=== PATIENT | female | born 1940 | race Caucasian/White ===

== ENCOUNTER 2017-03-17 13:56 | Inpatient (IN) ==
--- NOTE | 2017-03-17 14:45 | EKG Report ---
Test Performed on : 03/17/2017 1:56:37 PM Test Reason : AMS Blood Pressure : / mmHG Vent. Rate : 076 BPM Atrial Rate : 076 BPM P-R Int : 190 ms QRS Dur : 082 ms QT Int : 408 ms P-R-T Axes : 000 004 058 degrees QTc Int : 459 ms Normal sinus rhythm. Normal ECG No previous ECGs available Unconfirmed Result
[2017-03-17 15:03] LABS: INR 0.99; PROTIME 10.4 Seconds (9.2-11.7); PTT 25.6 Seconds (22.0-36.0)
[2017-03-17 15:05] LABS: BASO% 0.2 % (0.0-0.8); EOS# 0.12 X1000 (0.0-0.7); HEMATOCRIT 30.9 % (37.0-47.0); LYMPH# 1.35 X1000 (1.2-3.4); LYMPH% 10.7 % (20.5-51.1); MCH 36.1 PG (27-31); MCHC 32.4 g/dL (33-37); MCV 111.6 FL (81-99); MONO% 15.9 % (1.7-9.3); MPV 10.2 FL (7.4-10.4); NEUT% 72.2 % (42.2-75.2); PLT 554 X1000 (130-400); RBC 2.77 XMIL (4.2-5.4)
[2017-03-17 15:07] LABS: ALBUMIN 3.7 g/dL (3.5-5.0); CALCIUM 8.4 mg/dL (8.8-10.2); POTASSIUM 4.3 mmol/L (3.5-5.1); TOTAL BILIRUBIN 0.25 mg/dL (0.20-1.00); TOTAL PROTEIN 6.3 g/dL (6.3-8.3)
--- NOTE | 2017-03-17 15:20 | Diag Imaging Result Doc PS360 ---
CHEST-PORTABLE - 03/17/2017 INDICATION: AMS TECHNIQUE: COMPARISON: 08/03/2013 FINDINGS: Stable small granuloma in the right lung base. No focal infiltrates, pneumothorax, or pleural effusion. Heart size is top normal. IMPRESSION: No acute disease or change from prior. Electronically signed by Diony Boogie 03/17/2017 3:18 PM
[2017-03-17 15:28] LABS: MANUAL DIFF NEEDED? NO
--- NOTE | 2017-03-17 16:04 | Diag Imaging Result Doc PS360 ---
HEAD W/O CONTRAST - 03/17/2017 INDICATION: AMS TECHNIQUE: A CT dose reduction protocol was used. COMPARISON: None FINDINGS: At the posterior left foramen magnum extending into the extra-axial space adjacent to the left cerebellar tonsil, there is a rather densely calcified extra-axial mass. This measures about 2.1 x 1.1 cm. This is indeterminate but most likely a meningioma. There is an ill-defined hypodense area at the right cerebral hemisphere, at the intersection of the parietal, temporal, and occipital lobes. This is mostly involving the white matter, but there is some loss of the blair matter density in some places. The skull is intact. The sinuses, mastoids, and middle ears are clear. IMPRESSION: 1. Rather large ill-defined hypodensity of the right cerebral hemisphere. This may represent a stroke, or much less likely a cerebral mass. Correlate clinically. Recommend follow-up evaluation with a brain MRI without and with intravenous contrast. 2. Densely calcified extra-axial mass at the foramen magnum compatible with a meningioma. Electronically signed by Diony Boogie 03/17/2017 4:02 PM
[2017-03-17 16:47] LABS: URINE MICRO REVIEW NEEDED? NO; URINE SOURCE CATH
[2017-03-17 16:52] LABS: BILIRUBIN URINE NEGATIVE (NEGATIVE); BLOOD URINE NEGATIVE (NEGATIVE); COLOR YELLOW; GLUCOSE URINE NEGATIVE (NEGATIVE); LEUKOCYTES URINE LARGE (NEGATIVE); NITRITE URINE NEGATIVE (NEGATIVE); PH URINE 5.5; PROTEIN URINE TRACE mg/dL (NEGATIVE); SP GRAVITY URINE 1.015; TURBIDITY URINE HAZY (CLEAR); UROBILINOGEN URINE NORMAL (NORMAL)
[2017-03-17 16:55] LABS: UR EPITHELIAL CELLS <10 /HPF (<10); URINE BACTERIA 4+ /HPF; URINE CULTURE NEEDED? YES; URINE RBC <10 /HPF (<10); URINE WBC TNTC /HPF (<10)
[2017-03-17 17:03] LABS: UR AMPHETAMINES QUAL NONE DETECTED (NONE DETECT); UR BARBITUATES QUAL NONE DETECTED (NONE DETECT); UR BENZODIAZEPIN QUAL NONE DETECTED (NONE DETECT); UR CANNABINOIDS QUAL NONE DETECTED (NONE DETECT); UR COCAINE QUAL NONE DETECTED (NONE DETECT); UR METHADONE QUAL NONE DETECTED (NONE DETECT); UR OPIATES QUAL NONE DETECTED (NONE DETECT); UR OXYCODONE QUAL NONE DETECTED (NONE DETECT); UR PCP QUAL NONE DETECTED (NONE DETECT)
[2017-03-17] MEDS ORDERED: LEVAQUIN 750 MG/D5W 750 MG/150 ML IVPB IV ONE (17:22)
--- NOTE | 2017-03-17 18:23 | PROVIDER DOCUMENTATION ---
This chart was entered by Valerie Rivas Scribe, acting as scribe for Jose R Lizarraga MD. HPI-Syncope/Dizziness - General Chief Complaint: Syncope Stated Complaint: dystonic,diaphoretic on EMS arrival, weakness Time Seen by Provider: 03/17/17 14:06 Source: patient Allergies/Adverse Reactions: Patient Allergies Allergy/AdvReac Type Severity Reaction Status Date / Time Penicillins Allergy Mild RASH Verified 03/17/17 14:17 Home Medications: Home Medication List Medication Instructions Recorded Confirmed Last Taken Type Levothyroxine [Synthroid] 100 microgm PO DAILY 08/03/13 03/17/17 09/05/16 08:00 History ATORVAstatin [Lipitor] 40 mg PO DAILY 09/06/16 03/17/17 09/05/16 08:00 History Anagrelide [Agrylin] 0.5 mg PO BID 09/06/16 03/17/17 09/05/16 08:00 History Hydroxyurea 500 mg PO DAILY 09/06/16 03/17/17 09/05/16 08:00 History Losartan Potassium [Cozaar] 100 mg PO DAILY 09/06/16 03/17/17 09/05/16 08:00 History Amlodipine [Norvasc] 10 mg PO DAILY 03/17/17 03/17/17 Unknown History Clopidogrel Bisulfate [Plavix] 75 mg PO DAILY 03/17/17 03/17/17 Unknown History Esomeprazole [Nexium] 40 mg PO DAILY 03/17/17 03/17/17 Unknown History - History of Present Illness-Syncope/Dizzy Nature of Presenting Problem: 76 yo WF with dementia and weight loss was sitting at the table eating when she said she felt 'dizzy' or 'like she was going out.' She pushed her plate away and her head slumped forward. She did not collapse or strike her head. She was unresponsive for several minutes. Had eyes open and no witnessed shaking. Family noted that she was soaking wet on her back and seemed very cold. Onset/Duration: reports: just prior to arrival Timing: reports: gone now Position/Activity at time of episode: reports: sitting Symptoms prior to episode: reports: lightheaded, diaphoresis. denies: visual disturbance, nausea/vomiting, chest pain, racing heart, abdominal pain, back pain Context: reports: became unresponsive, felt faint Loss of Consciousness: prolonged (minutes) Location of injury. (If syncope resulted in an injury.): reports: none Current Symptoms: reports: none/feels normal Similar symptoms previously: reports: previous diagnosis, tests Recently Seen Here or By Another Healthcare Provider: No - Dizziness Severity in ED: reports: mild Any recent trauma/injury?: reports: none Modifying Factors: improves with: nothing Review of Systems - Adult - REVIEW OF SYSTEMS - ADULT Constitutional: reports: no symptoms reported Eyes: reports: no symptoms reported Ears, Nose, Mouth & Throat: reports: no symptoms reported Cardiovascular: reports: no symptoms reported. denies: chest pain, heart murmur Respiratory: reports: no symptoms reported Gastrointestinal: reports: no symptoms reported Genitourinary: reports: no symptoms reported Musculoskeletal: reports: no symptoms reported Integumentary: reports: no symptoms reported Neurological: reports: no symptoms reported Psychiatric: reports: no symptoms reported Endocrine: reports: no symptoms reported Hematologic/Lymphatic: reports: no symptoms reported Allergic/Immunologic: reports: no symptoms reported All Other Systems: Reviewed and Negative Past History - Adult - PAST MEDICAL HISTORY-ADULT Review of Records: reports: Old Records Reviewed, Nursing Assessment Review, Medications Reviewed, Social history reviewed & non-contributory. Genitourinary: reports: chronic UTI's Musculoskeletal: reports: denies history Neurological: reports: CVA, dementia Psychiatric: reports: denies history - PRIOR SURGERIES/PROCEDURES Surgical/Procedure History: reports: other (bilat hip surg) - FAMILY HISTORY Family History: reviewed, not pertinent - SOCIAL HISTORY Smoking: non-smoker Substance Use: none/never Alcohol Use Frequency: never Living Situation: family Physical Exam-General - PHYSICAL EXAM-ADULT Initial Vital Signs Reviewed: Yes - CONSTITUTIONAL General Appearance: appears well, alert - EYES Eyes: PERRL/EOMI, pink conjunctivae - HEAD, EARS, NOSE, MOUTH & THROAT HENMT: normocephalic/atraumatic, moist mucous membranes - NECK Neck: non-tender, full range of motion, supple. negative: carotid bruit, lymphadenopathy - RESPIRATORY Respiratory: chest non-tender, lungs clear, normal breath sounds, no respiratory distress, no accessory muscle use - CARDIOVASCULAR Cardiovascular: regular rate, rhythm, no edema. negative: systolic murmur - GASTROINTESTINAL (ABDOMEN) Abdominal Exam: normal bowel sounds, non tender, soft, no organomegaly, no pulsatile mass - LYMPHATIC Lymphatic: no adenopathy - MUSCULOSKELETAL Back Exam: no CVA tenderness Extremity: no pedal edema, no calf tenderness - SKIN Integumentary: normal color, normal turgor - NEUROLOGIC Neurologic: manager inventory management II-XII nml as tested, grossly normal, no motor/sensory deficits - PSYCHIATRIC Psych/Mental Status: normal mood/affect, normal thought content, normal thought process, oriented x 3 Progress - PLAN OF CARE/RESULTS Progress/Plan/Lab Results: Vital Signs - 8 hr 03/17/17 14:12 03/17/17 16:10 Temperature 98.0 F Pulse Rate 74 68 Respiratory Rate 19 16 Blood Pressure 161/74 150/82 O2 Sat by Pulse Oximetry 100 100 Laboratory Results - last 24 hr 03/17/17 03/17/17 03/17/17 14:10 14:10 14:10 WBC 12.59 H RBC 2.77 L Hgb 10.0 L Hct 30.9 L MCV 111.6 H MCH 36.1 H MCHC 32.4 L RDW Std Deviation 13.8 Plt Count 554 H MPV 10.2 Neut % (Auto) 72.2 Lymph % (Auto) 10.7 L [place] % (Auto) 15.9 H Eos % (Auto) 1.0 Baso % (Auto) 0.2 Neut # (Auto) 9.10 H Lymph # (Auto) 1.35 [place] # (Auto) 2.00 H Eos # (Auto) 0.12 Baso # (Auto) 0.02 Segmented Neutrophils Not Reportable PT 10.4 INR 0.99 PTT (Actin FS) 25.6 Sodium 134 L Potassium 4.3 Chloride 99 Carbon Dioxide 22 L Anion Gap 13 BUN 27 H Creatinine 1.3 H Estimated GFR/1.73 m2 40 BUN/Creatinine Ratio 21 Glucose 95 Calculated Osmolality 273 Calcium 8.4 L Total Bilirubin 0.25 AST 15 ALT 10 Alkaline Phosphatase 97 Creatine Kinase 17 L Troponin T Total Protein 6.3 Albumin 3.7 Globulin 2.6 Albumin/Globulin Ratio 1.4 Urine Source Urine Color Urine Turbidity Urine pH Ur Specific [place] Urine Protein Ur Glucose (Stick) Ur Ketones (Stick) Urine Blood Urine Nitrite Urine Bilirubin Urobilinogen Dipstick Urine Leukocytes Urine WBC (Auto) Urine RBC (Auto) U Epithel Cells (Auto) Urine Bacteria (Auto) Urine Opiates Screen Ur Oxycodone Screen Ur Methadone, Qual Ur Barbiturates Screen Ur Phencyclidine Scrn Ur Amphetamines Screen U Benzodiazepines Scrn Urine Cocaine Screen U Cannabinoids Screen 03/17/17 03/17/17 03/17/17 14:10 16:40 16:40 WBC RBC Hgb Hct MCV MCH MCHC RDW Std Deviation Plt Count MPV Neut % (Auto) Lymph % (Auto) [place] % (Auto) Eos % (Auto) Baso % (Auto) Neut # (Auto) Lymph # (Auto) [place] # (Auto) Eos # (Auto) Baso # (Auto) Segmented Neutrophils PT INR PTT (Actin FS) Sodium Potassium Chloride Carbon Dioxide Anion Gap BUN Creatinine Estimated GFR/1.73 m2 BUN/Creatinine Ratio Glucose Calculated Osmolality Calcium Total Bilirubin AST ALT Alkaline Phosphatase Creatine Kinase Troponin T < 0.010 Total Protein Albumin Globulin Albumin/Globulin Ratio Urine Source CATH Urine Color YELLOW Urine Turbidity HAZY Urine pH 5.5 Ur Specific [place] 1.015 Urine Protein TRACE A Ur Glucose (Stick) NEGATIVE Ur Ketones (Stick) NEGATIVE Urine Blood NEGATIVE Urine Nitrite NEGATIVE Urine Bilirubin NEGATIVE Urobilinogen Dipstick NORMAL Urine Leukocytes LARGE A Urine WBC (Auto) TNTC A Urine RBC (Auto) <10 U Epithel Cells (Auto) <10 Urine Bacteria (Auto) 4+ Urine Opiates Screen NONE DETECTED Ur Oxycodone Screen NONE DETECTED Ur Methadone, Qual NONE DETECTED Ur Barbiturates Screen NONE DETECTED Ur Phencyclidine Scrn NONE DETECTED Ur Amphetamines Screen NONE DETECTED U Benzodiazepines Scrn NONE DETECTED Urine Cocaine Screen NONE DETECTED U Cannabinoids Screen NONE DETECTED Orders Category Date Time Status Cardiac Monitoring DIRECTED Care 03/17/17 14:42 Active Finger Stick Blood Sugar (ED) DIRECTED Care 03/17/17 14:42 Active Saline Loc NOW Care 03/17/17 14:42 Active CHEST-PORTABLE [RAD] Stat Exams 03/17/17 14:42 Completed HEAD W/O CONTRAST [CT] Stat Exams 03/17/17 14:42 Completed CBC WITH ELECTRONIC DIFF [HEME] Stat Lab 03/17/17 14:10 Completed CK PROFILE [SP CHEM] Stat Lab 03/17/17 14:10 Completed COMPREHENSIVE METABOLIC PANEL [CHEM] Stat Lab 03/17/17 14:10 Completed LACTATE, PLASMA [CHEM] Stat Lab 03/17/17 14:42 Uncollected PROTIME WITH INR [COAG] Stat Lab 03/17/17 14:10 Completed PTT [COAG] Stat Lab 03/17/17 14:10 Completed TROPONIN T Stat Lab 03/17/17 14:10 Completed URINALYSIS W/POSS RFLX CULT-1 [URINALYSIS] Stat Lab 03/17/17 16:40 Completed URINE CULTURE [RM] Routine Lab 03/17/17 16:55 Received URINE DRUG SCREEN Stat Lab 03/17/17 16:40 Completed Levofloxacin 750 mg/D5w [Levaquin 750 mg/D5w] Med 03/17/17 17:22 Active 750 mg in 150 ml IV NOW Pulse Oximetry Stat Oth 03/17/17 14:42 Completed EKG [EKG] Stat Ther 03/17/17 14:42 Draft Result Diagrams: 03/17/17 14:10 03/17/17 14:10 - EKG 1 Time of EKG reading by physician:: 13:56 EKG Read and Signed by:: Jazzy Samaniego EKG Interpretation (*Must complete 3 of following elements*): Normal Rate: 76 Rhythm: NSR - CT/MRI 1 CT Study: Head Impression: Abnormal, Need Further Study CT Results: right cerebral hypodensity - CONSULTS/PCP/HOSPITALIST Notification #1 *Consult/PCP/Hospitalist*: ramos Time Discussed: 18:22 Consult Disposition: Will see in ED, Admit Departure - Departure Time of Disposition Decision: 18:20 DIAGNOSIS: CVA (cerebral vascular accident) Qualifiers: CVA mechanism: unspecified Qualified Code(s): I63.9 - Cerebral infarction, unspecified UTI (urinary tract infection) Qualifiers: Urinary tract infection type: site unspecified Hematuria presence: without hematuria Qualified Code(s): N39.0 - Urinary tract infection, site not specified Disposition: ADMITTED INPATIENT 09 Certified Medical Emergency: Emergent Condition: Stable - Critical Care Note This patient required my direct & personal management of CC.: No This chart was documented by the indicated scribe, (Valerie Rivas Scribe) and accurately reflects the services I performed and decisions made by me, Jose R Lizarraga MD, as attested by the provider's signature.
[2017-03-17] MEDS ORDERED: TYLENOL PO PRN (21:22)
[2017-03-17] MEDS ORDERED: ZOFRAN IV PRN (21:22)
[2017-03-17] MEDS: NS 1,000 ML IV SCH (23:05)
[2017-03-17 23:07] LABS: IRON SATURATION 35 %; TIBC 193 ug/dL; TOTAL IRON 68 ug/dL (49-151); UNBOUND IRON 125 ug/dL (112-346)
--- NOTE | 2017-03-17 23:21 | HISTORY AND PHYSICAL ---
PRIMARY CARE PHYSICIAN: Dr. Dereck Bojorquez. CHIEF COMPLAINT: Unresponsive, unable to talk. HISTORY OF PRESENTING ILLNESS: A 76-year-old female apparently was having some lunch with her daughter or so when she became unresponsive and was not able to get her words out. As per her spouse, this occurred previously and it was suspected that she had a stroke and she was put on Plavix. The patient states that the symptoms lasted a few minutes or so and then it improved. The patient was evaluated in the ER and her symptoms seem to have improved however due to presenting symptoms, it was thought that she would need hospitalization for further management. At the time of my examination, she denied any headache, fever, chills, chest pain, shortness of breath, hemoptysis or weight changes. States she is still somewhat weak. PAST MEDICAL HISTORY: Includes CVA, thrombocytosis. PAST SURGICAL HISTORY: Bilateral hip replacement, bilateral knee replacement, cataract surgery, hysterectomy, gastric bypass. ALLERGIES: Penicillin. CURRENT MEDICATIONS: As listed in the MAR. SOCIAL HISTORY: No history of smoking, alcohol or illicit drug use. She uses a walker due to patient being unsteady. FAMILY HISTORY: No history of coronary disease. REVIEW OF SYSTEMS: Twelve point review of systems is as in HPI. Other systems negative. PHYSICAL EXAMINATION: GENERAL: Cooperative, friendly elderly female. She is resting comfortably now. VITAL SIGNS: Temperature 97.7 degrees, pulse 70, respirations 20, blood pressure 167/48. HEENT: Atraumatic, normocephalic. Extraocular movements intact. PERRLA. NECK: No masses. CHEST: Clear to auscultation. CARDIOVASCULAR: Regular rate, rhythm. ABDOMEN: Soft. Positive bowel sounds. EXTREMITIES: No edema. NEURO: She is awake, alert, oriented x3. Strength 5/5 all extremities. Speech is intact. : No bladder distention. SKIN: Warm. LABORATORIES AND STUDIES: WBC 12.59, hemoglobin 10.1, hematocrit 30.9, platelets 554,000. Sodium 134, potassium 4.3, chloride 99, CO2 of 22, BUN is 27, creatinine is 1.3, glucose is 95. Urine shows large leukocytes. ASSESSMENT: A 76-year-old female with a history of cerebrovascular accident and thrombocytosis had presented to emergency department after she had an episode where she was unable to get her words out and was somewhat unresponsive. She was brought to the emergency department and due to her presenting symptoms, it was thought that she would need evaluation for stroke. 1. Suspected cerebrovascular accident. 2. Urinary tract infection. 3. History of thrombocytosis. PLAN: 1. Will admit patient to medical floor with telemetry. 2. Continue stroke workup. 3. We will consult Neurology. 4. We will schedule patient for MRI of the brain. 5. We will check urine culture and start the patient on IV antibiotics. 6. We will consult her oncologist to follow along for her thrombocytosis. 7. We will put patient on DVT prophylaxis with SCD. 8. We will continue to follow and reassess. cc: Lito Thakur MD
[2017-03-18 06:21] LABS: CALCIUM 8.3 mg/dL (8.8-10.2); POTASSIUM 3.9 mmol/L (3.5-5.1)
[2017-03-18] MEDS: SYNTHROID PO SCH (06:36)
[2017-03-18 06:53] LABS: BASO% 0.5 % (0.0-0.8); EOS# 0.11 X1000 (0.0-0.7); EOS% 1.3 % (0.0-10.0); HEMATOCRIT 30.5 % (37.0-47.0); HEMOGLOBIN 9.9 g/dL (12.0-16.0); IMM GRAN# 0.03 X1000 (0.0-0.04); IMM GRAN% 0.4 % (0.0-0.5); LYMPH# 1.78 X1000 (1.2-3.4); LYMPH% 21.4 % (20.5-51.1); MANUAL DIFF NEEDED? YES; MCH 35.4 PG (27-31); MCHC 32.5 g/dL (33-37); MCV 108.9 FL (81-99); MONO# 0.99 X1000 (0.11-0.59); MONO% 11.9 % (1.7-9.3); MPV 9.9 FL (7.4-10.4); NEUT% 64.5 % (42.2-75.2); PLT 500 X1000 (130-400)
[2017-03-18 07:24] LABS: EOS 2 % (1-10); LYMPHS 20 % (21-51); MONO 8 % (1-9)
[2017-03-18] MEDS: NS 1,000 ML IV SCH ×2 (08:43→16:45)
[2017-03-18] MEDS: NEXIUM PO SCH (08:43)
[2017-03-18] MEDS: LIPITOR PO SCH (08:43)
[2017-03-18] MEDS: NORVASC PO SCH (08:43)
[2017-03-18] MEDS: PLAVIX PO SCH (08:43)
[2017-03-18] MEDS: HYDREA PO SCH (08:43)
[2017-03-18] MEDS: PATIENT'S OWN MED PO SCH ×2 (08:44→21:02)
[2017-03-18] MEDS: COZAAR PO SCH (08:44)
[2017-03-18] MEDS ORDERED: NORVASC PO SCH (09:00)
--- NOTE | 2017-03-18 11:47 | PROGRESS NOTE ---
DATE: 03/18/2017 SUBJECTIVE: Ms. Bautista was admitted on 03/17/2017. She was found unresponsive. Apparently, she was at a restaurant. This 76-year-old apparently was having some lunch with her daughter when she became unresponsive and was unable to get her words out. As per her spouse, this occurred previously. Suspect she had a stroke and she was put on Plavix. The patient states that the symptoms lasted a few minutes or so then improved. The patient was evaluated in the emergency room, and symptoms seemed to have improved; however, due to presenting symptoms, it was thought she would need hospitalization for further management. PAST MEDICAL AND SURGICAL HISTORY: CVA, a previous event like this, thrombocytosis, bilateral hip replacement, bilateral knee replacement, cataract surgery, hysterectomy, and gastric bypass. ALLERGIES: Penicillin. LABORATORY DATA: Review of her lab: Yesterday, white count 12,590, hematocrit 30, platelet count 554,000. Chemistries: Sodium 136, potassium 3.9, chloride 101, bicarb 23. BUN 23, creatinine 1.2. Liver functions unremarkable. Noted the ferritin was 918. B12 greater than 2000. Folate was a little low at 6.0. PT was 10.4. PTT was 25. Urine showed too numerous to count white cells, 4+ bacteria. Urine drug screen unremarkable. ASSESSMENT AND PLAN: 1. Suspect cerebrovascular accident or transient ischemic event. Apparently, some speech trouble. This is a 76-year-old with history of cerebrovascular accident a little while ago with thrombocytosis, presented to the emergency room with an episode. Unable to get the words out of her mouth and then became unresponsive with quick recovery. 2. She had some urinary sediment. She denies any symptoms to match or correlate with urinary tract infection. Nonetheless, we will plan on treating. Looking at her orders, she is on Levaquin 750 mg IV daily, Synthroid 100 mcg daily, Cozaar 100 mg p.o. daily, normal saline at 100 mL an hour, amlodipine 5 mg a day, Lipitor 40 mg a day, on Plavix 75 mg a day. Looking over vital signs, blood pressure running a little high. I think she is on a regular diet. Her chest x-ray, 03/17/2017, no acute disease. Her head CT from yesterday: Rather large ill-defined hypodensity in the right cerebral hemisphere. This may suggest a stroke, much less likely a cerebral mass. Densely calcified extra-axial mass in the foramina magnum compatible with meningioma, so I think we will need to get an MRI of her head. At present, would continue present orders. cc: Owen Bateman MD
--- NOTE | 2017-03-18 17:56 | ECHO REPORT ---
ORDER DATE: 03/18/2017 MEASUREMENTS: Left ventricular end-diastolic diameter 4.0, end-systolic diameter 3.0, posterior wall thickness 1.1, left atrium 3.8, aortic root 3.5. SUMMARY: 1. Fair quality study with somewhat limited parasternal acoustic window quality. 2. Aortic valve without structural abnormality evident with peak gradient of 11 mmHg. There is mild aortic regurgitation. Mitral, tricuspid and pulmonic valves are without structural abnormality with trace mitral regurgitation, trace tricuspid regurgitation, and mild pulmonic insufficiency. Aortic root is normal size. 3. Normal left ventricular dimension suggested. There is some sigmoid hypertrophy of the basal septum. Estimated left ejection fraction appears to be at least 60%. No regional wall motion abnormalities evident. Doppler suggests grade 1 left ventricular diastolic dysfunction. Left atrium is upper normal in size. Right atrium, right ventricle normal size with preserved right ventricular systolic performance. 4. No pericardial effusion. 5. Appearance of inferior vena cava suggests normal central venous pressure. CONCLUSIONS: 1. Mild aortic regurgitation. 2. Normal left ventricular systolic function without wall motion abnormality evident. 3. Grade 1 left ventricular diastolic dysfunction suggested. cc: MD Sterling Acosta CRNP
[2017-03-18] MEDS ORDERED: LEVAQUIN 750 MG/D5W 750 MG/150 ML IVPB IV SCH (18:00)
[2017-03-19 06:30] LABS: BASO% 0.4 % (0.0-0.8); EOS# 0.08 X1000 (0.0-0.7); EOS% 1.4 % (0.0-10.0); HEMATOCRIT 27.4 % (37.0-47.0); HEMOGLOBIN 8.8 g/dL (12.0-16.0); IMM GRAN# 0.02 X1000 (0.0-0.04); IMM GRAN% 0.4 % (0.0-0.5); LYMPH# 1.48 X1000 (1.2-3.4); LYMPH% 26.1 % (20.5-51.1); MANUAL DIFF NEEDED? YES; MCH 35.1 PG (27-31); MCHC 32.1 g/dL (33-37); MCV 109.2 FL (81-99); MONO# 0.74 X1000 (0.11-0.59); MPV 9.7 FL (7.4-10.4); NEUT% 58.7 % (42.2-75.2); PLT 386 X1000 (130-400); RBC 2.51 XMIL (4.2-5.4)
[2017-03-19] MEDS: NS 1,000 ML IV SCH (06:40)
[2017-03-19] MEDS: SYNTHROID PO SCH (06:40)
[2017-03-19] MEDS: NORVASC PO SCH (06:50)
[2017-03-19 07:41] LABS: EOS 2 % (1-10); LYMPHS 28 % (21-51); MONO 16 % (1-9)
[2017-03-19 07:48] VITALS: BP 189/62
[2017-03-19] MEDS: PLAVIX PO SCH (10:11)
[2017-03-19] MEDS: LIPITOR PO SCH (10:14)
[2017-03-19] MEDS: HYDREA PO SCH (10:14)
[2017-03-19] MEDS: NEXIUM PO SCH (10:14)
[2017-03-19] MEDS: COZAAR PO SCH (10:15)
[2017-03-19] MEDS: PATIENT'S OWN MED PO SCH (11:06)
--- NOTE | 2017-03-19 11:19 | DISCHARGE SUMMARY ---
ADMISSION DATE: 03/17/2017 DISCHARGE DATE: 03/19/2017 HISTORY OF PRESENT ILLNESS: This is a 76-year-old (doctor is Dr. Dereck Bojorquez) female. Apparently after having some lunch with her daughter, when she became unresponsive, was unable to get her words out as per her spouse. Suspected they might have had a stroke. HOSPITAL COURSE: She was put on Plavix. Patient states the symptoms lasted a few minutes and so then improved. The patient was evaluated in the ER and her symptoms seemed to have improved. Due to presenting symptoms, it was thought she was going to need hospitalization. She showed steady improvement with her speech. She is being treated for essential thrombocytosis but that appears to be stable. Would like to get an MRI of her head and plan to schedule that as an outpatient but she is requesting to go home. DISCHARGE MEDICATIONS: She will be on Norvasc 5 mg a day, Lipitor 40 mg a day, Plavix 75 mg a day, Nexium 40 mg daily, Hydrea 500 mg daily, Synthroid 100 mcg daily, Cozaar 100 mg daily. DISCHARGE INSTRUCTIONS: Follow up with Dr. Dereck Bojorquez and Dr. Ramirez. We will set her up for an MRI as an outpatient. cc: Owen Bateman MD
--- NOTE | 2017-03-19 16:29 | CONSULTATION ---
DATE OF CONSULTATION: 03/19/2017 REQUESTING PHYSICIAN: Dr. Mo. CHIEF COMPLAINT: Change in mental status. HISTORY OF PRESENT ILLNESS: Patient is a 76-year-old female who is well known to my service. She was admitted with an episode of unresponsiveness and unable to talk despite being awake. This happened while they were in a restaurant. It took about 30 minutes for her to get better. TIA suspected and she is being treated for the same. Sometime in January she was diagnosed with a stroke. Dr. Bojorquez is planning to get her to Dr. Moctezuma for evaluation and management of the same. From hematology standpoint, she has a history of essential thrombocytosis. She is on Hydrea and anagrelide and her platelets have been well controlled. Over the last 6 CBCs in the clinic, her platelets have ranged between 300,000 and 400,000. Today she is feeling better. She appears to be alert and oriented. Family members report that she is back to her baseline at this time. However over the last month or so they report that she has good days in the morning but towards the end of the day she has some difficulty with memory and starts to just "gaze into space." PAST MEDICAL HISTORY: Stroke, essential thrombocytosis. PAST SURGICAL HISTORY: Bilateral hip replacement, bilateral knee replacement, cataract surgery, gastric bypass, hysterectomy. ALLERGIES: Penicillin. SOCIAL HISTORY: Patient is and lives with her . She denies smoking, alcohol, or substance abuse. FAMILY HISTORY: Noncontributory. CURRENT MEDICATIONS: Norvasc, Lipitor, Plavix, Nexium, Hydrea, anagrelide, Levaquin, Synthroid, Cozaar, Zofran. REVIEW OF SYSTEMS: Patient denies headache or blurry vision. Family reports that she has neglect of her left vision. She denies chest pain or shortness of breath. Dr. Bojorquez is planning for a stress test next Monday. All other review of systems are negative. PHYSICAL EXAMINATION: General: Patient is a well-developed, well-nourished female, in no acute distress. Vital signs: Temperature 98.0 degrees, pulse 61, blood pressure 189/62. HEENT: EOMI. PERRLA. Anicteric. Mucous membranes appear moist. Cardiac exam: Regular rate and rhythm. Normal S1, S2. Chest: Clear to auscultation. Abdomen: Soft, nontender, without hepatosplenomegaly or masses. Extremities: No cyanosis, clubbing, or edema. Neurological: Alert and oriented x3. She is moving all 4 extremities. LABORATORY DATA: White count 5.68, hemoglobin 8.8, hematocrit 27, MCV 109, platelets 386,000. BUN 22, creatinine 1.2. LFTs are normal. Iron profile is adequate. B12 greater than 2000, folate low at 6.0. ASSESSMENT AND PLAN: 1. Essential thrombocytosis: Platelet counts are well-controlled. Continue anagrelide and Hydrea at the current dosing. No new recommendations from this standpoint. 2. Folate deficiency: Start folic acid 1 mg daily. 3. Macrocytosis: This is due to Hydrea therapy. Replete folic acid. 4. History of stroke sometime in January. 5. Recent episode of unresponsiveness: Currently thinking this is transient ischemic attack. She is on Plavix and due to follow up with Dr. Moctezuma. cc: Aimee Moctezuma III, MD
[2017-03-19] MEDS ORDERED: FOLIC ACID PO SCH (21:00)
--- NOTE | 2017-03-22 10:28 | Carotid Study ---
DATE: 03/18/2017 PROCEDURE: Bilateral duplex and color flow imaging of the carotid arteries performed using the [employer] Vivid E9 Ultrasound System with a 9L-D transducer. REFERRING PHYSICIAN: Dr. Thakur INTERPRETING PHYSICIAN: Shelby Sánchez MD INDUSTRIAL AERIAL INSTALLER: Cydney Baeza RVT INDICATIONS: Transient ischemic attack, ICD-10 G45.9. OBSERVED DATA RIGHT LEFT Brachial Blood Pressure Carotid Pulse Bruits: Carotid/Sub DIAGRAM OF ULTRASOUND IMAGING R L RIGHT INT EXT INT EXT LEFT Cruzito (cm/s) Cruzito (cm/s) Subclavian 102/0 Subclavian 94/0 CCA Proximal 83/0 CCA Proximal 84/0 CCA Distal 92/7 CCA Distal 78/6 Bulb 98/0 Bulb 74/6 ICA Proximal 61/0 ICA Proximal 74/8 ICA Mid 54/4 ICA Mid 62/7 ICA Distal 47/1 ICA Distal 71/5 ECA 136/0 ECA 85/0 Vertebral 56/0 A Vertebral 49/4 A ICA/CCA Ratio 0.67 ICA/CCA Ratio 0.88 % Stenosis 0%-39% % Stenosis 0%-39% INTERPRETATION: Mild atherosclerotic disease of the distal common and the internal carotid arteries bilaterally without evidence of a hemodynamically significant lesion in either carotid system. cc: MD Sterling Torrez CRNP
== END 2017-03-19 12:15 | disposition home or self-care (01) ==
LOC: ED 13:56 → 3N 21:08 → SUATTDRO 21:08
PROVIDERS: ATTEND Emergency Medicine

== ENCOUNTER 2017-07-30 12:39 | Inpatient (IN) ==
[2017-07-30] MEDS ORDERED: ZOFRAN IV ONE (13:00)
[2017-07-30] MEDS ORDERED: NS 1,000 ML IV ONE (13:01)
[2017-07-30 13:44] LABS: MANUAL DIFF NEEDED? NO
[2017-07-30 13:55] LABS: BASO% 0.2 % (0.0-0.8); EOS# 0.03 X1000 (0.0-0.7); EOS% 0.2 % (0.0-10.0); HEMATOCRIT 22.5 % (37.0-47.0); HEMOGLOBIN 7.5 g/dL (12.0-16.0); IMM GRAN# 0.04 X1000 (0.0-0.04); IMM GRAN% 0.3 % (0.0-0.5); LYMPH# 0.97 X1000 (1.2-3.4); MCH 34.4 PG (27-31); MCHC 33.3 g/dL (33-37); MCV 103.2 FL (81-99); MONO# 1.49 X1000 (0.11-0.59); MONO% 10.7 % (1.7-9.3); MPV 10.2 FL (7.4-10.4); NEUT% 81.6 % (42.2-75.2); PLT 408 X1000 (130-400); RBC 2.18 XMIL (4.2-5.4)
[2017-07-30 14:06] LABS: ALBUMIN 3.1 g/dL (3.5-5.0); CALCIUM 7.9 mg/dL (8.8-10.2); POTASSIUM 5.1 mmol/L (3.5-5.1); TOTAL BILIRUBIN 0.31 mg/dL (0.20-1.00); TOTAL PROTEIN 5.3 g/dL (6.3-8.3)
[2017-07-30] MEDS ORDERED: REGLAN IV ONE (14:53)
[2017-07-30] MEDS ORDERED: CARDIZEM IV ONE (14:57)
[2017-07-30] MEDS ORDERED: REGLAN ONE (15:00)
[2017-07-30 15:32] LABS: INR 1.04
[2017-07-30 15:34] LABS: MAGNESIUM 2.4 mg/dL (1.5-2.7)
[2017-07-30 15:37] LABS: IRON SATURATION 34 %; TIBC 201 ug/dL; TOTAL IRON 68 ug/dL (49-151); UNBOUND IRON 133 ug/dL (112-346)
[2017-07-30 15:38] LABS: HEMOGLOBIN A1C 5.1 % (4.8-6.0)
[2017-07-30] MEDS ORDERED: PROTONIX IV SCH (15:45)
[2017-07-30] MEDS ORDERED: ZOFRAN IV PRN (15:45)
[2017-07-30] MEDS ORDERED: SODIUM CHLORIDE 0.9% INJ SCH (15:45)
--- NOTE | 2017-07-30 16:08 | Diag Imaging Result Doc PS360 ---
FLAT/UPRIGHT ABD/1 VIEW CHEST - 07/30/2017 INDICATION: weakness, n/v, leukocytosis TECHNIQUE: Three views COMPARISON: 03/17/2017 FINDINGS: The chest is clear. There is a stable granuloma in the right lung base. There are surgical clips in the epigastrium and left upper quadrant. No bowel obstruction or free air. There are bilateral prosthetic hips in good position. IMPRESSION: No acute disease. Electronically signed by Diony Boogie 07/30/2017 4:05 PM
[2017-07-30 17:22] LABS: URINE MICRO REVIEW NEEDED? NO; URINE SOURCE CATH
[2017-07-30 17:36] LABS: BILIRUBIN URINE NEGATIVE (NEGATIVE); BLOOD URINE NEGATIVE (NEGATIVE); COLOR YELLOW; GLUCOSE URINE NEGATIVE (NEGATIVE); LEUKOCYTES URINE MODERATE (NEGATIVE); NITRITE URINE NEGATIVE (NEGATIVE); PH URINE 5.5; PROTEIN URINE TRACE mg/dL (NEGATIVE); SP GRAVITY URINE 1.011; TURBIDITY URINE HAZY (CLEAR); UROBILINOGEN URINE NORMAL (NORMAL)
[2017-07-30 17:37] LABS: UR EPITHELIAL CELLS <10 /HPF (<10); URINE BACTERIA 4+ /HPF; URINE CULTURE NEEDED? YES; URINE RBC <10 /HPF (<10)
[2017-07-30 17:47] LABS: PROTEIN CREAT RATIO 0.3; UR CREAT RANDOM 103.3 mg/dL (11-20); UR PROT RANDOM 34.2 mg/dL
--- NOTE | 2017-07-30 18:06 | Diag Imaging Result Doc PS360 ---
CT HEAD W/O CONTRAST - 07/30/2017 INDICATION: ams TECHNIQUE: A CT dose reduction protocol was used. 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 No intracranial mass or hemorrhage at this time. The skull is intact. The sinuses are clear. 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 No acute disease. Electronically signed by Diony Boogie 07/30/2017 6:04 PM
--- NOTE | 2017-07-30 18:21 | Diag Imaging Result Doc PS360 ---
CT THORAX/NECK - 07/30/2017 INDICATION: dysphagia, vomiting TECHNIQUE: A CT dose reduction protocol was used. COMPARISON: None FINDINGS: NECK: There is moderate patient motion artifact. No mucosal mass or adenopathy. 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 There is degeneration throughout the cervical spine. No acute or suspicious bony lesions. CHEST: There has been gastric bypass. There is some wall thickening and edema at the distal esophagus. There is a trace pericardial and left pleural effusion. No adenopathy. Heart size is normal. There are calcified granulomas in the right lower lobe and hilum. Upper abdominal images are grossly normal. There is some patchy linear atelectasis in the lung bases but otherwise no infiltrates. There are moderate degenerative changes of the spine. No acute or suspicious bony lesion. IMPRESSION: 1. No acute process in the neck. 2. Significant wall thickening of the distal esophagus with some surrounding edema. This could represent advanced esophagitis or possibly malignancy. Further investigation recommended. 3. There has been gastric bypass. Electronically signed by Diony Boogie 07/30/2017 6:19 PM
[2017-07-30] MEDS: PROTONIX IV SCH (18:46)
[2017-07-30] MEDS: NS 1,000 ML IV SCH (18:46)
[2017-07-30] MEDS ORDERED: PATIENT'S OWN MED PO SCH (21:00)
[2017-07-30] MEDS: PATIENT'S OWN MED PO SCH (21:54)
[2017-07-31] MEDS: PROTONIX IV SCH ×2 (05:01→22:58)
--- NOTE | 2017-07-31 05:35 | EKG Report ---
Test Performed on : 07/30/2017 12:52:05 PM Test Reason : syncope Blood Pressure : / mmHG Vent. Rate : 084 BPM Atrial Rate : 084 BPM P-R Int : 216 ms QRS Dur : 066 ms QT Int : 346 ms P-R-T Axes : 000 000 030 degrees QTc Int : 408 ms Sinus rhythm. with 1st degree AV block. with premature supraventricular complexes. Inferior infarct , age undetermined Cannot rule out Anterior infarct , age undetermined Abnormal ECG When compared with ECG of 25-JUL-2017 11:00, Minimal criteria for Anterior infarct are now present Inferior infarct is now present Unconfirmed Result
[2017-07-31 06:52] LABS: CALCIUM 7.3 mg/dL (8.8-10.2); POTASSIUM 5.1 mmol/L (3.5-5.1)
[2017-07-31] MEDS: NS 1,000 ML IV SCH ×3 (08:01→22:58)
[2017-07-31 08:31] LABS: MCHC 32.5 g/dL (33-37); MCV 104.6 FL (81-99); MPV 10.2 FL (7.4-10.4); RBC 1.53 XMIL (4.2-5.4)
[2017-07-31 08:56] LABS: RETIC% 2.07 % (0.8-2.1); RETIC-HE 37.4 PG (28.2-36.6)
[2017-07-31] MEDS ORDERED: HYDREA PO SCH (09:00)
--- NOTE | 2017-07-31 09:17 | Diag Imaging Result Doc PS360 ---
EXAM: US RENAL 2 (RETROPER) COMPLETE INDICATION: onesimo/arf TECHNIQUE: COMPARISON: None. FINDINGS: There is a 1 cm simple appearing renal cyst on the left near the lower pole. The renal echotexture is grossly unremarkable, otherwise. No discrete renal mass or hydronephrosis is identified. The right kidney measures 11.1 cm and the left kidney measures 10.8 cm in the greatest longitudinal axes. The right renal cortex measures up to 0.9 cm and the left renal cortex measures up to 0.8 cm in thickness. There is a Claire catheter in urinary bladder and the bladder is nondistended. IMPRESSION: Small simple appearing left renal cyst. Grossly unremarkable renal ultrasound, otherwise. Electronically signed by David Joiner 07/31/2017 9:15 AM
[2017-07-31] MEDS: NORVASC PO SCH (10:06)
[2017-07-31] MEDS: SYNTHROID PO SCH (10:06)
[2017-07-31] MEDS: FOLIC ACID PO SCH (10:06)
[2017-07-31] MEDS: PATIENT'S OWN MED PO SCH ×3 (10:07→22:59)
--- NOTE | 2017-07-31 10:38 | Diag Imaging Result Doc PS360 ---
EXAM: GI SERIES WITH BA SWALLOW HISTORY: Dysphagia, H/O Gastric bypass with narrow stoma TECHNIQUE: Eight films taken. Fluoroscopy time is 43 seconds. Total dose is 946 cGy square centimeter COMPARISON: None. FINDINGS: Thin barium was swallowed without difficulty. There is normal passage of barium through the esophagus and into the stomach. No esophageal abnormality. There has been a gastric bypass procedure. The stomach is small. There is quick emptying into the small bowel. No mass or stricture identified. IMPRESSION: Gastric bypass, but no abnormality identified. Electronically signed by Kevin Carrillo 07/31/2017 10:36 AM
[2017-07-31 10:45] LABS: HEMOGLOBIN 5.2 g/dL (12.0-16.0)
[2017-07-31 12:06] LABS: URINE MICRO REVIEW NEEDED? NO; URINE SOURCE CATH
[2017-07-31 12:17] LABS: BILIRUBIN URINE NEGATIVE (NEGATIVE); BLOOD URINE SMALL (NEGATIVE); COLOR ORANGE; GLUCOSE URINE NEGATIVE (NEGATIVE); LEUKOCYTES URINE LARGE (NEGATIVE); NITRITE URINE NEGATIVE (NEGATIVE); PH URINE 5.5; PROTEIN URINE 30 mg/dL (NEGATIVE); SP GRAVITY URINE 1.014; TURBIDITY URINE TURBID (CLEAR); UR EPITHELIAL CELLS <10 /HPF (<10); URINE BACTERIA 4+ /HPF; URINE RBC <10 /HPF (<10); URINE WBC TNTC /HPF (<10); UROBILINOGEN URINE NORMAL (NORMAL)
[2017-07-31] MEDS ORDERED: ROCEPHIN 1 GM in NS 50 ML IV SCH (14:45)
[2017-07-31] MEDS ORDERED: TYLENOL PO ONE (16:00)
[2017-07-31] MEDS ORDERED: BENADRYL IV ONE (16:00)
[2017-07-31] MEDS: SODIUM CHLORIDE 0.9% INJ SCH (22:58)
[2017-07-31] MEDS: LEVAQUIN 250 MG/D5W 250 MG/50 ML IVPB IV SCH (22:59)
[2017-08-01] MEDS: NS 1,000 ML IV SCH ×4 (01:55→18:08)
[2017-08-01 05:57] LABS: HEMATOCRIT 21.9 % (37.0-47.0); HEMOGLOBIN 7.2 g/dL (12.0-16.0); MCH 31.9 PG (27-31); MCHC 32.9 g/dL (33-37); MCV 96.9 FL (81-99); RBC 2.26 XMIL (4.2-5.4)
[2017-08-01 06:10] LABS: CALCIUM 7.9 mg/dL (8.8-10.2)
[2017-08-01] MEDS: NORVASC PO SCH (08:18)
[2017-08-01] MEDS: SODIUM CHLORIDE 0.9% INJ SCH (08:18)
[2017-08-01] MEDS: PROTONIX IV SCH ×2 (08:18→21:45)
[2017-08-01] MEDS: SYNTHROID PO SCH (08:19)
[2017-08-01] MEDS: FOLIC ACID PO SCH (08:19)
[2017-08-01] MEDS: PATIENT'S OWN MED PO SCH ×3 (08:20→16:33)
[2017-08-01] MEDS: LEVAQUIN 250 MG/D5W 250 MG/50 ML IVPB IV SCH (21:45)
[2017-08-02] MEDS: NS 1,000 ML IV SCH ×4 (04:16→18:56)
[2017-08-02] MEDS ORDERED: DIPRIVAN 1% ONE (06:51)
[2017-08-02] MEDS ORDERED: XYLOCAINE-MPF 2% ONE (06:52)
[2017-08-02 08:30] LABS: HEMATOCRIT 26.6 % (37.0-47.0); HEMOGLOBIN 8.9 g/dL (12.0-16.0); MCH 31.2 PG (27-31); MCHC 33.5 g/dL (33-37); MCV 93.3 FL (81-99); MPV 10.6 FL (7.4-10.4); RBC 2.85 XMIL (4.2-5.4)
[2017-08-02 08:33] LABS: ALBUMIN 2.9 g/dL (3.5-5.0); CALCIUM 7.7 mg/dL (8.8-10.2); POTASSIUM 4.1 mmol/L (3.5-5.1)
[2017-08-02] MEDS: PATIENT'S OWN MED PO SCH ×3 (09:21→17:50)
[2017-08-02] MEDS: SODIUM CHLORIDE 0.9% INJ SCH (09:22)
[2017-08-02] MEDS: FOLIC ACID PO SCH (09:23)
[2017-08-02] MEDS: PROTONIX IV SCH ×2 (09:23→21:53)
[2017-08-02] MEDS: SYNTHROID PO SCH (09:23)
[2017-08-02] MEDS: NORVASC PO SCH (09:23)
[2017-08-02] MEDS: LEVAQUIN 250 MG/D5W 250 MG/50 ML IVPB IV SCH (21:52)
[2017-08-03 06:20] LABS: ALBUMIN 2.7 g/dL (3.5-5.0); CALCIUM 7.5 mg/dL (8.8-10.2); POTASSIUM 4.3 mmol/L (3.5-5.1)
[2017-08-03] MEDS: NORVASC PO SCH (09:42)
[2017-08-03] MEDS: FOLIC ACID PO SCH (09:42)
[2017-08-03] MEDS: SYNTHROID PO SCH (09:43)
[2017-08-03] MEDS: PATIENT'S OWN MED PO SCH ×3 (09:44→17:49)
[2017-08-03] MEDS: SODIUM CHLORIDE 0.9% INJ SCH ×2 (09:45→21:09)
[2017-08-03] MEDS: PROTONIX IV SCH ×2 (09:46→21:09)
[2017-08-03] MEDS: NS 1,000 ML IV SCH ×2 (13:29→15:44)
[2017-08-03] MEDS: LEVAQUIN 250 MG/D5W 250 MG/50 ML IVPB IV SCH (21:08)
[2017-08-04] MEDS: NS 1,000 ML IV SCH ×2 (02:47→06:48)
[2017-08-04 06:33] LABS: AGAP 9; ALBUMIN 2.6 g/dL (3.5-5.0); BUN 24 mg/dL (8-22); CALCIUM 7.7 mg/dL (8.8-10.2); CHLORIDE 107 mmol/L (98-107); COSMO 273; POTASSIUM 4.4 mmol/L (3.5-5.1); SODIUM 134 mmol/L (136-145); TCO2 18 mmol/L (25-35)
[2017-08-04] MEDS: FOLIC ACID PO SCH (08:13)
[2017-08-04] MEDS: NORVASC PO SCH (08:13)
[2017-08-04] MEDS: PROTONIX IV SCH (08:13)
[2017-08-04] MEDS: PATIENT'S OWN MED PO SCH ×2 (08:13→13:02)
[2017-08-04] MEDS: SYNTHROID PO SCH (08:13)
[2017-08-04 14:34] VITALS: BP 150/70
== END 2017-08-04 15:21 | disposition home or self-care (01) ==
LOC: ED 12:39 → 4N 15:11 → SUATTDRO 15:11
PROVIDERS: ATTEND Emergency Medicine